=== PATIENT | female | born 1970 | race Caucasian/White ===

== ENCOUNTER → 2018-03-25 | Outpatient (CLI) | payer OTHER ==
[~2018-03-25] MED LIST: IOPAMIDOL (ISOVUE-300) 100 ML BTL ONE
== END ==
LOC: FIMAGING 10:59
PROVIDERS: ATTEND Internal Medicine Gastroenterology
DX: C18.7 Malignant neoplasm of sigmoid colon (principal); D25.9 Leiomyoma of uterus, unspecified; N83.202 Unspecified ovarian cyst, left side; R91.8 Other nonspecific abnormal finding of lung field
CPT/HCPCS: Q9967

== ENCOUNTER → 2018-09-23 | Outpatient (CLI) | payer OTHER | LOC: FIMAGING 08:23 | DX: C18.7 Malignant neoplasm of sigmoid colon (principal); R79.89 Other specified abnormal findings of blood chemistry; R91.1 Solitary pulmonary nodule | CPT/HCPCS: 82565-PO; Q9967 ==

== ENCOUNTER 2018-10-15 12:15 | Emergency (ER) | payer OTHER ==
--- NOTE | 2018-10-15 13:05 | EDPHY ---
H & P Time Seen by Provider: 10/15/18 12:47 HPI/ROS: CHIEF COMPLAINT: Rapid heartbeat HISTORY OF PRESENT ILLNESS: The patient is a 48-year-old female with a history of colon cancer on chemotherapy who presents emergency depart with rapid heartbeat. The patient states she has had multiple episodes of rapid heartbeat. She can usually alleviate these symptoms with Valsalva maneuver. A although they occur her rarely, these episodes have occurred prior to the onset of her chemotherapy. The patient currently takes Xelota and oxaliplatin for chemo. The patient denies chest pain or shortness of breath. No nausea vomiting. No lightheadedness or dizziness. REVIEW OF SYSTEMS: 10 systems were reveiwed and are negative with the exception of the elements mentioned in the history of present illness. Past Medical/Surgical History: Includes colon cancer Smoking Status: Never smoked Physical Exam: Vitals noted. Heart rate 160. GENERAL: Well-appearing, in no acute distress, alert. HEENT: Eyes normal to inspection, normal pharynx, no signs of dehydration. NECK: Normal, supple. RESPIRATORY: Clear to auscultation bilaterally, no rales, rhonchi or wheezing. CVS: Regular rate and rhythm, no rubs, murmurs, or gallops. Chest: Patient has a right chest port ABDOMEN: Soft, nontender, nondistended, no organomegaly. BACK: Normal to inspection, no CVA tenderness. SKIN: Normal color, no rash, warm, dry. No pallor. EXTREMITIES: No pedal edema, no calf tenderness, no Homans sign or cords, no joint swelling. NEURO/PSYCH: Alert and oriented, normal mood and affect, normal motor sensory exam. No obvious cranial nerve deficit. Constitutional: Initial Vital Signs Temperature (C) 36.8 C 10/15/18 12:17 Heart Rate 160 H 10/15/18 12:17 Respiratory Rate 18 10/15/18 12:17 Blood Pressure 113/80 10/15/18 12:17 O2 Sat (%) 96 10/15/18 12:17 O2 Delivery Mode Room Air Allergies/Adverse Reactions: No Known Allergies Allergy (Verified 10/15/18 12:19) Home Medications: Medication Instructions Recorded Ondansetron Odt [Zofran Odt] 4 mg PO Q4PRN PRN #7 tab 03/05/11 Oral/Iv Chemo 10/15/18 Medical Decision Making Procedures: Procedure: Adenosine cardioversion Indication: SVT Patient consented to the procedure. She was given adenosine 12 mg IV. She tolerated the procedure well. She converted to sinus tachycardia. ED Course/Re-evaluation: In the emergency department I discussed possible etiologies with the patient. I answered all her questions. I discussed the case with Cardiology Dr. Joy. He has not feel there is a contraindication to her chemotherapy agents and adenosine. I discussed the plan with the patient. I answered all her questions. She consented to chemical cardioversion. Patient converted to sinus tachycardia. She tolerated the procedure well. EKG: Sinus rhythm at 85. Normal axis. Normal intervals. Slight ST depression V4 through V6. Dr. Joy recommended echocardiogram. 1410: Patient is doing well. She has no chest pain or shortness of breath. CBC showed mild anemia. Chemistry panel is unremarkable. The patient's troponin is 0.35 Echocardiogram: Please refer the dictated report. No acute disease noted. Differential Diagnosis: My differential includes but not limited to SVT, atrial flutter, atrial fibrillation, ACS, acute GA - Data Points Laboratory Results: Laboratory Results 10/15/18 14:15 10/15/18 14:15 10/15/18 10/15/18 10/15/18 14:28 14:15 14:15 WBC RBC Hgb Hct MCV MCH MCHC RDW Plt Count MPV Neut % (Auto) Lymph % (Auto) [place] % (Auto) Eos % (Auto) Baso % (Auto) Nucleat RBC Rel Count Absolute Neuts (auto) Absolute Lymphs (auto) Absolute Monos (auto) Absolute Eos (auto) Absolute Basos (auto) Absolute Nucleated RBC Immature Gran % Immature Gran # Sodium 138 mEq/L mEq/L (135-145) Potassium 3.4 mEq/L L mEq/L (3.5-5.2) Chloride 106 mEq/L mEq/L (97-110) Carbon Dioxide 22 mEq/l mEq/l (22-31) Anion Gap 10 mEq/L mEq/L (6-14) BUN 13 mg/dL mg/dL (7-23) Creatinine 0.5 mg/dL L mg/dL (0.6-1.0) Estimated GFR > 60 Glucose 77 mg/dL mg/dL (70-100) Calcium 9.5 mg/dL mg/dL (8.5-10.4) POC Troponin I 0.35 ng/mL H ng/mL (0.00-0.08) Beta HCG, Qual Pending 10/15/18 14:15 WBC 7.08 10^3/uL 10^3/uL (3.80-9.50) RBC 3.65 10^6/uL L 10^6/uL (4.18-5.33) Hgb 12.7 g/dL g/dL (12.6-16.3) Hct 36.8 % L % (38.0-47.0) MCV 100.8 fL H fL (81.5-99.8) MCH 34.8 pg H pg (27.9-34.1) MCHC 34.5 g/dL g/dL (32.4-36.7) RDW 16.2 % H % (11.5-15.2) Plt Count 169 10^3/uL 10^3/uL (150-400) MPV 12.2 fL H fL (8.7-11.7) Neut % (Auto) 76.0 % H % (39.3-74.2) Lymph % (Auto) 14.3 % L % (15.0-45.0) [place] % (Auto) 8.9 % % (4.5-13.0) Eos % (Auto) 0.1 % L % (0.6-7.6) Baso % (Auto) 0.3 % % (0.3-1.7) Nucleat RBC Rel Count 0.0 % % (0.0-0.2) Absolute Neuts (auto) 5.38 10^3/uL 10^3/uL (1.70-6.50) Absolute Lymphs (auto) 1.01 10^3/uL 10^3/uL (1.00-3.00) Absolute Monos (auto) 0.63 10^3/uL 10^3/uL (0.30-0.80) Absolute Eos (auto) 0.01 10^3/uL L 10^3/uL (0.03-0.40) Absolute Basos (auto) 0.02 10^3/uL 10^3/uL (0.02-0.10) Absolute Nucleated RBC 0.00 10^3/uL 10^3/uL (0-0.01) Immature Gran % 0.4 % % (0.0-1.1) Immature Gran # 0.03 10^3/uL 10^3/uL (0.00-0.10) Sodium Potassium Chloride Carbon Dioxide Anion Gap BUN Creatinine Estimated GFR Glucose Calcium POC Troponin I Beta HCG, Qual Medications Given: Discontinued Medications Adenosine (Adenosine) 6 mg IVP EDNOW ONE Stop: 10/15/18 13:30 Last Admin: 10/15/18 13:29 Dose: Not Given Adenosine (Adenosine) 12 mg IVP EDNOW ONE Stop: 10/15/18 13:31 Last Admin: 10/15/18 13:31 Dose: 12 mg Sodium Chloride (Ns) 500 mls @ 1,000 mls/hr IV EDNOW ONE PRN Reason: Protocol Stop: 10/15/18 13:39 Last Admin: 10/15/18 13:21 Dose: 500 mls Point of Care Test Results: Chemistry 10/15/18 14:28 POC Troponin I 0.35 ng/mL H ng/mL (0.00-0.08) Departure - Departure Disposition: Home, Routine, Self-Care Clinical Impression: Supraventricular tachycardia Condition: Good Instructions: Supraventricular Tachycardia (ED) Additional Instructions: Return with increasing chest pain, shortness of breath or any other concerns. You been given contact information for Dr. Joy office. You should be seen in the next 1-2 days. Call to make an appointment with a newspaper [employer] supervisor. You should also follow up with your oncologist. Referrals: Bishop Joy MD [Medical Doctor] - 2-3 days without fail
[2018-10-15] MEDS ORDERED: NS 500 ML IV ONE (13:10)
[2018-10-15] MEDS ORDERED: ADENOSINE 6 MG/2 ML VIAL ONE ×2 (13:13→13:24)
[2018-10-15] MEDS ORDERED: ADENOSINE 6 MG/2 ML VIAL IVP ONE ×2 (13:29→13:30)
[2018-10-15 14:42] LABS: PLATELET COUNT 169 10^3/uL (150-400)
--- NOTE | 2018-10-15 15:02 | ECHO ---
[email or web address] [address] Main: [phone] Echocardiography Examination Transthoracic Name: RODOLFO MANN MR#: [id number] Study Date: 10/15/2018 Study Time: 02:28 PM Date of : 1970 Age: 48 year(s) Height: 154.9 cm (61 in.) Weight: 58.06 kg (128 lb.) BSA: 1.56 m2 Gender: Female Examination: Echo Contrast: Image Quality: Adequate Rhythm: Heart Rate: 82 bpm BP: 122 mmHg/87 mmHg Indication: Supraventricular Tachycardia, Chemotherapy Procedure Staff Referring Physician: Supervisor [employer]: Reading Physician: Bishop Joy MD Requesting Provider: Indication: Supraventricular Tachycardia, Chemotherapy Measurements Chambers AV/MV Label Value Normal Value Label Value Normal Value LVOT Vmax 0.98 m/s (0.7m/s - 1.1m/s) AV PGmax 7 mmHg LVOT PGmax 4 mmHg AV Vmax 1.29 m/s LVDd, 2D 4 cm (3.9cm - 5.3cm) MV E Vmax 0.78 m/s LVDs, 2D 2.3 cm (2.1cm - 4cm) MV A Vmax 0.46 m/s IVSd, 2D 0.7 cm (0.6cm - 1.1cm) MV E/A 1.7 LVPWd, 2D 0.8 cm MV E/E' lateral 6.9 LVEF, 2D 74 % (54% - 74%) MV E/E' septal 8.9 (0.5 - 1.7) EF lower range (%) 70 % MV E' septal 0.09 m/s EF upper range (%) 75 % MV E' lateral 0.11 m/s Additional Vessels MV E/E' mean 7.8 Label Value Normal Value MV E' mean 0.1 m/s AoRoot, MM 2.7 cm (2.2cm - 3.7cm) TV/PV Label Value Normal Value PV PGmax 5 mmHg PV Vmax, Caliper 1.1 m/s (0.6m/s - 0.9m/s) Conclusions (1) Left ventricular systolic ejection fraction was normal (70-75%) - normal wall motion Patient: RODOLFO MANN Study Date: 10/15/2018 Page 1 of 2 02:28 PM (2) Normal RV size and function (3) Normal atrial dimensions (4) Normal mitral valve (5) Trileaflet aortic valve without sclerosis, stenosis, or insufficiency (6) Normal tricuspid valve (7) Normal pulmonic valve (8) Normal aortic dimensions (9) Trivial pericardial effusion (no tamponade) Findings Left Ventricle: EF range is estimated at 70 % - 75 %. Right Ventricle: Normal size right ventricle. Right ventricular systolic function is normal. Left Atrium: The left atrium is normal in size. Right Atrium: The right atrium is normal in size. Mitral Valve: Mitral valve appears structurally normal. No mitral regurgitation. No mitral valve stenosis. Aortic Valve: Aortic leaflets are normal in appearance and function. No aortic valve regurgitation. There is no aortic stenosis. The aortic valve is trileaflet. Tricuspid Valve: Tricuspid valve leaflets are normal in appearance and function. No tricuspid regurgitation. Pulmonic Valve: Pulmonic leaflets are normal in appearance and function. No pulmonic valve regurgitation is evident. Aorta: The aorta is normal. The aortic root size in M-mode measures 2.7 cm. Aorta Measurements AoRoot, MM is 2.7 cm. Pericardium: A trivial pericardial effusion was identified. Echo findings are not consistent with tamponade physiology. Exam Details Procedure Ordered: Echo Procedure Status: Routine study Image Quality: Adequate Facility Location: Cardiac Echo 1 (No Signature Object) Patient: RODOLFO MANN Study Date: 10/15/2018 Page 2 of 2 02:28 PM [id number]
--- NOTE | 2018-10-15 15:03 | CPEKG ---
Test Reason : OPEN Blood Pressure : / mmHG Vent. Rate : 085 BPM Atrial Rate : 089 BPM P-R Int : 145 ms QRS Dur : 092 ms QT Int : 383 ms P-R-T Axes : 075 072 065 degrees QTc Int : 456 ms Sinus rhythm Probable left atrial enlargement Nonspecific repol abnormality, lateral leads Confirmed by Rigoberto Kaplan ([id number]) on 10/15/2018 3:03:13 PM Referred By: RIGOBERTO KAPLAN Confirmed By:Rigoberto Kaplan
--- NOTE | 2018-10-15 15:03 | CPEKG ---
Test Reason : OPEN Blood Pressure : / mmHG Vent. Rate : 146 BPM Atrial Rate : 000 BPM P-R Int : 000 ms QRS Dur : 081 ms QT Int : 307 ms P-R-T Axes : 000 068 249 degrees QTc Int : 479 ms Junctional tachycardia Repol abnrm suggests ischemia, diffuse leads Confirmed by Uma Kaplan ([id number]) on 10/15/2018 3:03:03 PM Referred By: PHYSICIAN ED Confirmed By:Uma Kaplan
[2018-10-15 15:28] VITALS: BP 113/78
== END 2018-10-15 15:52 | disposition home or self-care (01) ==
DX: I47.1 Supraventricular tachycardia (principal); E86.9 Volume depletion, unspecified; C18.9 Malignant neoplasm of colon, unspecified; D64.9 Anemia, unspecified
CPT/HCPCS: 84484-ER; 96374; J0153; J1642